=== PATIENT | female | born 1965 ===

== ENCOUNTER 2019-07-04 10:01 | Observation (INO) | payer OTHER, MEDICAID, SELFPAY ==
[2019-07-04] VITALS (10 sets, daily range): BP systolic 107–141; BP diastolic 60–100; PULSE 80–93; RESP 16–18; TEMP 36.8–37.2; O2SAT 94–100; BMI 23.1; BMI 22.2
--- NOTE | 2019-07-04 10:09 | DI.CT.S_ITS ---
PROCEDURE: CT STROKE INDICATIONS: possible stroke TECHNIQUE: Noncontrast 4.5 mm thick angled axial sections acquired from the foramen magnum to the vertex, with coronal reformats. For radiation dose reduction, the following was used: automated exposure control, adjustment of mA and/or kV according to patient size. COMPARISON: None. FINDINGS: Image quality: Excellent. CSF spaces: Basal cisterns are patent. No extra-axial fluid collections. The ventricles are symmetric in size and shape. Brain: No intracranial bleeds or masses. On the axial 5 mm series there is volume averaging artifact within sulcus, image 20/2 the right frontal region, which does not persist with thin reformations, and not seen on coronal or sagittal reformations. There is cerebral volume loss for age, with resultant ventricular and sulcal prominence. There are periventricular and deep white matter chronic small vessel ischemic changes. There is intracranial internal carotid artery atherosclerosis. Skull and face: Calvarium and visualized facial bones appear intact, without suspicious lesions. Sinuses: Visualized sinuses and mastoids are clear. IMPRESSION: No acute intracranial process. Findings were personally telephoned and discussed with Dr. Portillo in the emergency department at 1023 hours 07/04/19. This study fulfills neurological imaging criteria for inclusion or exclusion of acute stroke therapies based on available published neurological guidelines. Dictated by: Nico Rehman M.D. on 07/04/2019 at 10:20 Approved by: Nico Rehman M.D. on 07/04/2019 at 10:24
[2019-07-04 10:18] LABS: Add Manual Diff / Slide Review NO; Basophils Absolute Auto 100 /uL (0-100); Basophils Percent Auto 0.7 % (0-2); Eosinophils Absolute Auto 300 /uL (0-450); Eosinophils Percent Auto 2.8 % (2-4); Hematocrit 37.5 % (36-46); Hemoglobin 12.5 g/dL (12.0-16.0); Lymphocytes Absolute Auto 2000 /uL (1100-4500); Lymphocytes Percent Auto 18.4 % (25-40); Mean Corpuscular HGB Conc 33.4 % (30-36); Mean Corpuscular Hemoglobin 29.2 PG (26-34); Mean Corpuscular Volume 87.5 fL (80-100); Monocytes Absolute Auto 700 /uL (0-900); Monocytes Percent Auto 6.7 % (3-14); Neutrophils Absolute Auto 7600 /uL (1500-7000); Neutrophils Percent Auto 71.4 % (50-75); Platelet Count 285 X10^3/uL (150-400); Red Blood Cell Count 4.28 X10^6/uL (4.0-5.2); Red Cell Distribution Width 13.5 % (11.6-14.8); White Blood Cell Count 10.7 X10^3/uL (4.5-11.0)
[2019-07-04 10:19] LABS: Prothrombin Time 11.7 SECONDS (10.1-12.7)
--- NOTE | 2019-07-04 10:19 | ED_ITS ---
HPI - General Adult General Chief complaint: Neuro Symptoms/Deficit Stated complaint: Stroke Time Seen by Provider: 07/04/19 10:01 Source: patient and EMS Mode of arrival: EMS Limitations: no limitations History of Present Illness HPI narrative: 54-year-old female arrived as a code stroke. Is reported that approximately 30-45 minutes prior to arrival patient had onset of right-sided facial tingling, right-sided facial droop, weakness in her right hand and weakness in her right lower extremity. Patient was arriving to her methadone clinic when the symptoms started. She also was complaining of right-sided hea dache. Since the onset of the symptoms EMS reports that they feel like her speaking has improved. Patient also reports that her symptoms have improved since the onset. Upon further questioning it does appear that the right-sided facial tingling potentially started at 0400 hours in the morning which is approximately 6 hours prior to arrival here in the ER. Related Data Home Medications Medication Instructions Recorded Confirmed IBUPROFEN (Motrin / Advil) 800 mg PO #0 05/23/08 Sertraline Hydrochloride (Zoloft) 50 mg PO Q DAY #0 05/23/08 [MAXALT] 10 mg #0 05/23/08 Allergies Allergy/AdvReac Type Severity Reaction Status Date / Time risperidone [From Risperdal] Allergy Severe Swelling Verified 07/04/19 10:24 of Lip/Tongue/Throat varenicline [From Chantix] Allergy Severe ITCHING Verified 07/04/19 10:24 Morphine Allergy Severe ITCHING Uncoded 07/04/19 10:23 Review of Systems Constitutional Constitutional: Denies fatigue, Denies fever(s), Reports headache(s) and Reports weakness Eyes Eyes: Denies change in vision ENT Ears, Nose, Mouth, and Throat: Denies vertigo, Denies dizziness, Reports he adache(s), Denies disequilibrium and Denies sore throat Comments: Right-sided facial tingling Cardiovascular Cardiovascular: Denies chest pain, Denies palpitations and Denies dyspnea Respiratory Respiratory: Denies dyspnea Gastrointestinal Gastrointestinal: Denies abdominal pain, Denies nausea and Denies vomiting Genitourinary Genitourinary: Denies dysuria Musculoskeletal Musculoskeletal: Denies myalgias, Denies arthralgias and Reports tingling Comments: Right upper extremity weakness and right lower extremity weakness Integumentary/Breasts Skin/Breast: Denies lesions and Denies rash Neurologic Neurologic: Denies behavioral changes, Denies confusion, Denies vertigo, Denies dizziness, Reports headache(s), Denies lack of coordination, Reports focal weakness, Denies seizure-like activity, Reports tingling, Denies tremor(s), Denies disequilibrium and Reports weakness Psychiatric Psychiatric: Denies behavioral changes and Denies confusion Endocrine Endocrine: Denies fatigue and Denies palpitations Hematologic/Lymphatic Hematologic/Lymphatic: Denies easy bleeding and Denies easy bruising Patient History Medical History Drug abuse (Acute) Migraine (Acute) Social History Smoking Status: Current every day smoker Exam Initial Vital Signs Initial Vital Signs: Vital Signs Pulse Rate 87 07/04/19 10:12 Respiratory Rate 18 07/04/19 10:12 Blood Pressure 136/96 H 07/04/19 10:12 Pulse Oximetry 100 07/04/19 10:12 Const General: cooperative, comfortable, well developed and well groomed Limitations: mental status not altered [facility] Head: normal to inspection and normocephalic Nose: external nose normal Face and sinus: normal facial exam, face symmetric and no tenderness Mouth: oral mucosae normal Throat: posterior oropharynx normal Eyes Pupils: PERRL Resp Effort & Inspection: normal respiratory effort Auscultation: clear to auscultation bilaterally Cardio Rate: regular rate Rhythm: regular rhythm GI Inspection: non-distended Palpation: soft, No firm and No tender Skin Lesions: no lesions Rashes: no rashes Neuro General: alert, awake and oriented x3 Cranial Nerves: CN's II-XI intact bilaterally Cognition: normal cognition Speech: speech normal Motor: muscle tone normal throughout Extrem General: normal to inspection and capillary refill normal Scores GCS Jair coma scale eye opening: Spontaneous Flushing coma scale verbal response: Orientated Flushing coma scale motor response: Obey commands Flushing coma scale total score: 15 NIH Stroke Scale Level of Conciousness: Alert, keenly responsive Ask month/age: Answers both questions correctly. Open/close eyes, close hand: Performs both tasks correctly Best gaze horizontal: Normal Visual segura: No visual loss Facial palsy: Normal symetrical movement Left arm drift: No drift for full 10 sec Right arm drift: No drift for full 10 sec Left leg drift: No drift for full 10 sec Right leg drift: No drift for full 10 sec Limb ataxia: Present in one limb (Right lower extremity) Sensory on face/arms/legs: Mild to moderate sensory loss, can tell touch (Right- sided face) Best language: No aphasia, normal Dysarthria: Normal Extinction or inattention: No abnormality Total NIH Stroke scale score: 2 Course Orders Ordered: ED Orders 07/04/19 10:03 EKG-12 Lead Stat 07/04/19 10:09 CT Stroke Stat 07/04/19 10:10 Complete Blood Count AUTO DIFF Stat Comprehensive Metabolic Panel Stat Ethanol (ETOH) Stat Lipase Stat Partial Thromboplastin Time Stat Prothrombin Time INR Stat Troponin I Stat Discontinued Medications Aspirin (Aspirin Chew) 324 mg PO NOW ONE Stop: 07/04/19 11:02 Last Admin: 07/04/19 11:22 Dose: 324 mg Documented by: JENIFER Nicotine (Nicoderm) 14 mg TOP NOW ONE Stop: 07/04/19 11:12 Vital Signs Vital signs: Vital Signs - 8 hr 07/04/19 10:12 07/04/19 10:28 07/04/19 11:20 Pulse Rate 87 86 83 Respiratory Rate 18 18 16 Blood Pressure 136/96 H Blood Pressure [Right Arm] 141/84 H 125/68 Pulse Oximetry 100 100 94 Medical Decision Making Lab Data Lab results reviewed: Yes I reviewed the patient's lab results. Result diagrams: 07/04/19 10:10 07/04/19 10:10 Labs: Lab Results 07/04/19 07/04/19 07/04/19 Range/Units 10:10 10:10 10:10 WBC 10.7 (4.5-11.0) X10^3/uL RBC 4.28 (4.0-5.2) X10^6/uL Hgb 12.5 (12.0-16.0) g/dL Hct 37.5 (36-46) % MCV 87.5 (80-100) fL MCH 29.2 (26-34) PG MCHC 33.4 (30-36) % RDW 13.5 (11.6-14.8) % Plt Count 285 (150-400) X10^3/uL Neut % (Auto) 71.4 (50-75) % Lymph % (Auto) 18.4 L (25-40) % Christian % (Auto) 6.7 (3-14) % Eos % (Auto) 2.8 (2-4) % Baso % (Auto) 0.7 (0-2) % Neut # (Auto) 7600 H (9613-3487) /uL Lymph # (Auto) 2000 (6711-9399) /uL Christian # (Auto) 700 (0-900) /uL Eos # (Auto) 300 (0-450) /uL Baso # (Auto) 100 (0-100) /uL PT 11.7 (10.1-12.7) SECONDS INR 1.0 (0.9-1.3) APTT 32 (26.4-36.2) SECONDS Sodium 138 (137-145) mmol/L Potassium 3.9 (3.4-5.1) mmol/L Chloride 101 (98-107) mmol/L Carbon Dioxide 28 (22-32) mmol/L BUN 12 (7-17) mg/dL Creatinine 0.74 (0.52-1.04) mg/dL Estimated GFR > 60.0 (>60) mL/min BUN/Creatinine Ratio 16.2 (6-22) Glucose 87 (70-100) mg/dL Calcium 9.8 (8.4-10.2) mg/dL Total Bilirubin 0.4 (0.2-1.3) mg/dL AST 35 (14-36) IU/L ALT 22 (<35) IU/L Alkaline Phosphatase 104 (38-126) U/L Troponin I (0.01-0.034) ng/mL Total Protein 8.3 H (6.3-8.2) g/dL Albumin 4.6 (3.5-5.0) g/dL Globulin 3.7 (1.7-4.1) g/dL Albumin/Globulin Ratio 1.2 (1.0-2.8) Lipase (23-300) U/L Ethyl Alcohol ( - 10) mg/dL / Range/Units 10:10 WBC (4.5-11.0) X10^3/uL RBC (4.0-5.2) X10^6/uL Hgb (12.0-16.0) g/dL Hct (36-46) % MCV (80-100) fL MCH (26-34) PG MCHC (30-36) % RDW (11.6-14.8) % Plt Count (150-400) X10^3/uL Neut % (Auto) (50-75) % Lymph % (Auto) (25-40) % Christian % (Auto) (3-14) % Eos % (Auto) (2-4) % Baso % (Auto) (0-2) % Neut # (Auto) (6599-2234) /uL Lymph # (Auto) (9632-8504) /uL Christian # (Auto) (0-900) /uL Eos # (Auto) (0-450) /uL Baso # (Auto) (0-100) /uL PT (10.1-12.7) SECONDS INR (0.9-1.3) APTT (26.4-36.2) SECONDS Sodium (137-145) mmol/L Potassium (3.4-5.1) mmol/L Chloride (98-107) mmol/L Carbon Dioxide (22-32) mmol/L BUN (7-17) mg/dL Creatinine (0.52-1.04) mg/dL Estimated GFR (>60) mL/min BUN/Creatinine Ratio (6-22) Glucose (70-100) mg/dL Calcium (8.4-10.2) mg/dL Total Bilirubin (0.2-1.3) mg/dL AST (14-36) IU/L ALT (<35) IU/L Alkaline Phosphatase (38-126) U/L Troponin I < 0.012 (0.01-0.034) ng/mL Total Protein (6.3-8.2) g/dL Albumin (3.5-5.0) g/dL Globulin (1.7-4.1) g/dL Albumin/Globulin Ratio (1.0-2.8) Lipase 60 (23-300) U/L Ethyl Alcohol < 10 ( - 10) mg/dL Point of Care Testing Glucose POC 98 Urine Dip Bedside Urine Glucose Negative Bedside Urine Bilirubin - Negative Bedside Urine Ketone - Negative Urine Specific [place] 1.015 Bedside Urine Occult Blood - Negative Bedside Urine pH 6.0 Bedside Urine Protein - Negative Bedside Urine Urobilinogen - Negative Bedside Urine Nitrite - Negative Bedside Urine Leukocytes - Negative Esterase Point of care testing: Point of Care Testing Glucose POC 98 Urine Dip Bedside Urine Glucose Negative Bedside Urine Bilirubin - Negative Bedside Urine Ketone - Negative Urine Specific [place] 1.015 Bedside Urine Occult Blood - Negative Bedside Urine pH 6.0 Bedside Urine Protein - Negative Bedside Urine Urobilinogen - Negative Bedside Urine Nitrite - Negative Bedside Urine Leukocytes - Negative Esterase Imaging Data CT scan - head: Radiologist's Impression: [address] [address] [address] Scan Report Signed Patient: Shyann Keita KMR#: [id number] : 1965Acct:[id number] Age/Sex: 54 / FDate of Service: 07/04/19 Loc: ED Accession Number: [id number] Procedure: CT Stroke Ordering Provider: Jeffery Portillo D.O. PROCEDURE: CT STROKE INDICATIONS: possible stroke TECHNIQUE: Noncontrast 4.5 mm thick angled axial sections acquired from the foramen magnum to the vertex, with coronal reformats. For radiation dose reduction, the following was used: automated exposure control, adjustment of mA and/or kV according to patient size. COMPARISON: None. FINDINGS: Image quality: Excellent. CSF spaces: Basal cisterns are patent. No extra-axial fluid collections. The ventricles are symmetric in size and shape. Brain: No intracranial bleeds or masses. On the axial 5 mm series there is volume averaging artifact within sulcus, image 20/2 the right frontal region, which does not persist with thin reformations, and not seen on coronal or sagittal reformations. There is cerebral volume loss for age, with resultant ventricular and sulcal prominence. There are periventricular and deep white matter chronic small vessel ischemic changes. There is intracranial internal carotid artery atherosclerosis. Skull and face: Calvarium and visualized facial bones appear intact, without suspicious lesions. Sinuses: Visualized sinuses and mastoids are clear. IMPRESSION: No acute intracranial process. Findings were personally telephoned and discussed with Dr. Portillo in the emergency department at 1023 hours 07/04/19. This study fulfills neurological imaging criteria for inclusion or exclusion of acute stroke therapies based on available published neurological guidelines. Dictated by: Nico Rehman M.D. on 07/04/2019 at 10:20 Approved by: Nico Rehman M.D. on 07/04/2019 at 10:24 ECG Data Attestation: I personally reviewed and interpreted this ECG as follows: Prior ECG tracings: not available for review Interpretation: Sinus rhythm Ventricular rate 84 Normal axis Normal QRS Normal QTC No ST T wave changes MDM Narrative Medical decision making narrative: Patient initially arrived as a code stroke within the window for tPA however per EMS and the patient does appear that her symptoms have been improving since the onset. Upon further questioning it does appear that her symptoms have potentially been present for greater than 6 hours. She does have a history of migraines. Has never had hemiplegic issues before with migraines. Her head CT is unremarkable. Initial NIH score of 2. I did discuss the case with Stroke Neurology who agree not treating the patient with tPA and admitting for further workup for a TIA. I then discussed the case with Dr. Quezada who will accept. Discussed this with the patient. She expressed understanding and agreement. Discharge Plan Departure Patient Disposition: Admitted as Observation Clinical Impression: Brain TIA Headache Qualifiers: Headache type: unspecified Headache chronicity pattern: unspecified pattern Intractability: not intractable Qualified Code(s): R51 - Headache
[2019-07-04 10:22] LABS: PTT Partial Thromboplastin Tim 32 SECONDS (26.4-36.2)
[2019-07-04 10:23] LABS: Ethanol (ETOH) < 10 mg/dL; Lipase 60 U/L (23-300)
[2019-07-04 10:24] LABS: Alanine Aminotransferase 22 IU/L (<35); Albumin 4.6 g/dL (3.5-5.0); Albumin Globulin Ratio 1.2 (1.0-2.8); Alkaline Phosphatase 104 U/L (38-126); Aspartate Aminotransferase 35 IU/L (14-36); BUN Creatinine Ratio 16.2 (6-22); Bilirubin Total 0.4 mg/dL (0.2-1.3); Blood Urea Nitrogen 12 mg/dL (7-17); Calcium 9.8 mg/dL (8.4-10.2); Carbon Dioxide 28 mmol/L (22-32); Chloride 101 mmol/L (98-107); Estimated Glomerular Filt Rate > 60.0 mL/min (>60); Globulin 3.7 g/dL (1.7-4.1); Glucose 87 mg/dL (70-100); HEMOLYSIS 30 (0-50); Potassium 3.9 mmol/L (3.4-5.1); Sodium 138 mmol/L (137-145); Total Protein 8.3 g/dL (6.3-8.2)
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
[2019-07-04 10:35] LABS: Troponin I < 0.012 ng/mL (0.01-0.034)
[2019-07-04] MEDS: ASPIRIN 81 MG CHEW TAB 324 MG PO (11:22)
[2019-07-04] MEDS: NICOTINE 14 PATCH 14 MG TOP (11:45)
--- NOTE | 2019-07-04 12:37 | DI.MRI.S_ITS ---
PROCEDURE: MR STROKE Pre- and post-contrast brain MRI, non-contrast brain MR angiogram, pre- and postcontrast neck MR angiogram INDICATIONS: TIA/CVA wi rt side deficit TECHNIQUE: Brain: Noncontrast axial T1 spin echo, axial T2 fast spin echo, sagittal and axial FLAIR, coronal T2 fast spin echo, axial gradient echo, axial diffusion and ADC through the brain. After the administration of contrast, axial 3D VIBE of the cranial vasculature and brain. Brain MRA: Non-contrast 3-D time of flight MR angiogram, with multiple mppyoxz-ndxajwupy-ilqofrqbuh (MIP) reformats performed. Neck MRA: Axial and sagittal TruFISP through the neck. Coronal dynamic MR angiogram during administration of contrast in the arterial and venous phases, with 3-dimenstional yotvejp-svrtvswex-cweedmbwzu (MIP) reformats constructed from subtraction images. COMPARISON: [facility], CT, CT STROKE, 07/04/2019, 9:59. FINDINGS: Image quality: Degraded by motion artifact. BRAIN: CSF spaces: Ventricles are normal in size and shape. Basal cisterns are patent. No extra-axial fluid collections. Brain: No intracranial bleeds or mass effects. Mild degree of patchy high FLAIR signal within the periventricular and subcortical white matter. Wright-white matter interface is normal. Diffusion weighted images show no acute ischemic insults. Brainstem appears normal. Normal intravascular flow voids are present. No abnormal intracranial enhancement. Skull and face: Calvarial marrow signal is normal. Orbits appear normal. Sinuses: Sinuses and mastoids are clear. BRAIN MR ANGIOGRAM: Anterior circulation: Intracranial internal carotid arteries are normal in size and enhancement. The flow within the paired anterior cerebral arteries is normal and symmetric. The flow within the middle cerebral arteries is normal and symmetric. The anterior communicating artery is seen. No stenoses, occlusions, or aneurysms. Posterior circulation: The visualized portions of the vertebral arteries demonstrate normal caliber, and join to form a normal appearing basilar artery. The flow within the posterior cerebral arteries is normal and symmetric. No stenoses, occlusions, or aneurysms. NECK MR ANGIOGRAM: Carotids: Great vessels demonstrate a conventional anatomy as they arise from the aortic arch. The origins of the common carotid arteries appear patent. The calibers and courses of both common carotid arteries are normal. The bifurcation regions appear normal bilaterally. The internal carotid arteries demonstrate normal course and caliber. Posterior circulation: The origins of the vertebral arteries appear patent. More superior portions of both vertebral arteries demonstrate normal course and caliber, and join to form a normal appearing basilar artery. Miscellaneous: Subclavian arteries appear patent. Pre-contrast images through the neck show no soft tissue abnormalities. IMPRESSION: Limited examinations secondary to motion artifact. BRAIN MRI: 1. No acute process. No recent infarct. 2. Mild small vessel ischemic disease. BRAIN MR ANGIOGRAM: Grossly negative cerebral MR angiography. NECK MR ANGIOGRAM: 1. No definite internal carotid nor vertebral artery stenosis bilaterally. Dictated by: José Miguel Lees M.D. on 07/04/2019 at 15:55 Approved by: José Miguel Lees M.D. on 07/04/2019 at 15:59
--- NOTE | 2019-07-04 12:38 | DI.ECHO.S_ITS ---
Echocardiogram Report + + :Name: FLAVIO SON Study Date: 07/04/2019 Height: 70 in : :[facility] Weight: 160 lb : : Gender: Other BSA: 1.9 m2 : :: 1965 Age: 54 yrs BP: 136/96 mmHg: :Reason For Study: TIA : :Ordering Physician: Dr. Renner : :Damien Performed By: Mellissa Glaser : :Referring: Dr. Zurdo Quezada : + + Interpretation Summary There is normal left ventricular wall thickness. Left ventricular systolic function is normal without focal wall motion abnormalities. The ejection fraction is estimated to be 60-65%. Diastolic parameters suggest probable normal left ventricular diastolic function and normal filling pressures. The right ventricle is normal in size and function. Pulmonary artery pressures cannot be estimated because of the lack of a measurable TR jet velocity but the IVC suggests a CVP of around 3 mmHg. The left atrial size is normal. Right atrial size is normal. The atrial septum is aneurysmal. Injection of contrast documented an interatrial right to left shunt. There is mild mitral regurgitation. There is no other significant valvular heart disease. The aortic root is normal size. Procedure: A two-dimensional transthoracic echocardiogram with color flow and Doppler was performed. There is no prior echocardiogram noted for this patient. The study quality was technically adequate. A saline contrast injection was performed to assess for cardiac shunting. The injection was performed through an intravenous line in the left arm. The patient was in normal sinus rhythm during the exam. Left Ventricle: There is normal left ventricular wall thickness. The left ventricular cavity is small. Left ventricular systolic function is normal without focal wall motion abnormalities. The ejection fraction is estimated to be 60-65%. Diastolic parameters suggest probable normal left ventricular diastolic function and normal filling pressures. Right Ventricle: The right ventricle is normal in size and function. Atria: The left atrial size is normal. Right atrial size is normal. The atrial septum is aneurysmal. Injection of contrast documented an interatrial shunt. Mitral Valve: The mitral valve is normal in structure and function. There is a flat closure plane of the the mitral valve leaflets. There is mild mitral regurgitation. Aortic Valve: The aortic valve is normal in structure and function. The aortic valve is trileaflet. The aortic valve opens well. There is trace aortic regurgitation. Tricuspid Valve: The tricuspid valve is normal in structure and function. Pulmonary artery pressures cannot be estimated because of the lack of a measurable TR jet velocity but the IVC suggests a CVP of around 3 mmHg. There is a trace or physiologic amount of tricuspid regurgitation. Pulmonic Valve: The pulmonic valve is normal in structure and function. There is trace pulmonic regurgitation. There is no other significant valvular heart disease. Great Vessels: The aortic root is normal size. The ascending aorta could not be visualized. The IVC is of normal diameter and collapses greater than 50% with a sniff. This suggests a low right atrial pressure of 3 mm Hg. Pericardium/ Pleura There is no pericardial effusion. There is no pleural effusion. MMode/2D Measurements & Calculations LVIDd: 3.5 cm LVOT diam: 2.1 cm LVIDs: 2.4 cm Ao root diam: 2.9 cm FS: 32.4 % Ao Arch Diam (Prox Trans): 2.7 cm EPSS: 0.75 cm IVSd: 0.76 cm LVPWd: 0.94 cm LV allen. diameter/BSA (cm/m^2): 1.8 LV sys. diameter/BSA (cm/m^2): 1.2 LA A2 area: 16.5 cm2 RA long axis: 4.4 cm LA A4 area: 10.3 cm2 RA area: 13.0 cm2 LA length (vol): 4.1 cm RA vol: 33.0 ml LA vol: 35.2 ml RA : 17.4 ml/m2 LA vol index: 18.5 ml/m2 IVC diam: 1.2 cm RVD1 (basal): 3.0 cm TAPSE: 2.3 cm Doppler Measurements & Calculations Ao V2 max: 131.6 cm/sec LVOT Max Bakari: 105.8 cm/sec Ao V2 mean: 87.3 cm/sec LV V1 max P.5 mmHg Ao max P.9 mmHg LV V1 VTI: 21.7 cm Ao mean P.5 mmHg JASON(I,D): 2.9 cm2 Ao V2 VTI: 26.9 cm JASON(V,D): 2.9 cm2 sev ratio: 0.81 JASON indexed to BSA (cm^2/m^2): 1.5 MV E max bakari: 66.8 cm/sec PA V2 max: 73.8 cm/sec MV A max bakari: 57.1 cm/sec PA V2 mean: 50.4 cm/sec MV E/A: 1.2 PA mean P.1 mmHg Med Peak E' Bakari: 12.6 cm/sec PA pr(Accel): 16.7 mmHg E/E' med: 5.3 PA Accel Time: 0.14 sec Lat Peak E' Bakari: 13.8 cm/sec E/E' lat: 4.8 E/e' average: 5.1 MV dec time: 0.19 sec MV P1/2t: 54.0 msec MV P1/2t max bakari: 66.8 cm/sec SV(LVOT): 78.7 ml MVA(P1/2t): 4.1 cm2 _ Reading Physician:03:21 PM
--- NOTE | 2019-07-04 12:49 | PC.NURSE ---
Pt has been brought to the AC floor via wheelchair from the ED. Pt has arrived to the AC floor at 1230. She is A & O x4. She c/o some numbness to her chin but feels all other deficits that had caused her to be brought to the hospital have resolved. Pt has been oriented to the room.
--- NOTE | 2019-07-04 14:33 | P.HP_ITS ---
History of Present Illness History of Present Illness Date Patient Seen: 07/04/19 Time Patient Seen: 14:00 Chief complaint: Stroke Narrative: Patient is a 54-year-old female with history of migraine headaches, cigarette addiction, heroin use by inhalation who presented to ER due to acute change in neurological status. Around 4:00 a.m. this morning she woke up and noticed there was tingling on the right side of her face. Also her right eye felt a little watery and blurry. She was able to fall back asleep but woke up a couple of hours later with tingling and numbness of the right side of the face as well as the right arm and leg. She noticed she had difficulty applying makeup or lipstick. Then around 830 or 9:00 a.m. she started to notice a posterior headache which was unlike her typical migraines. Her usual migraines are preceded by visual prodrome and associated with photophobia. Around that time she got in the car and drove herself to the [facility] for her methadone treatment. While driving there she noticed her right ankle felt numb and weak. At the clinic they called 911 to bring her to the ER. In the ER she was still having paresthesias of the right face, upper and lower extremity as well as subjective weakness of arm and leg on that side. Symptoms gradually improved over the course of several hours. When the ER doc saw her patient had NIHSS score of 2 due to tingling of the face and ataxia of the right lower extremity. At this time mid afternoon patient states all her symptoms have resolved except she has some residual numbness around the right side of her lips. Patient has no history of coronary artery disease, TIA or CVA. She used to take simvastatin but it was stopped several years ago because she states her cholesterol was well controlled. Her migraines have been recently well controlled. She has been in methadone treatment for the past 7 months and continues to smoke heroin in small amounts. She denies IV drug use. Denies fevers, chest pain, dyspnea. EKG: Normal sinus rhythm, mild LAE Patient History Medical History Drug abuse (Acute) Migraine (Acute) Family & Social History Safety & Behavioral: Feels Safe in Current Yes Environment Been Physically Hurt or No Threatened By a Person Tobacco & Substance use: Smoking Status Current every day smoker alcohol intake frequency 0-2 drinks per day Substance Use Type heroin Meds Home Medications and Allergies Home Medications Medication Instructions Recorded Confirmed Type IBUPROFEN (Motrin / Advil) 800 mg PO #0 05/23/08 History Sertraline Hydrochloride (Zoloft) 50 mg PO Q DAY #0 05/23/08 History [MAXALT] 10 mg #0 05/23/08 History Allergies Allergy/AdvReac Type Severity Reaction Status Date / Time risperidone [From Risperdal] Allergy Severe Swelling Verified 07/04/19 10:24 of Lip/Tongue/Throat varenicline [From Chantix] Allergy Severe ITCHING Verified 07/04/19 10:24 Morphine Allergy Severe ITCHING Uncoded 07/04/19 10:23 Review of Systems Review of Systems ROS: Yes All systems reviewed with the patient and are negative except as otherwise documented Exam Vital Signs (past 8 hours): - 07/04/19 10:12 07/04/19 10:28 07/04/19 11:20 Temperature Pulse Rate 87 86 83 Respiratory Rate 18 18 16 Blood Pressure 136/96 H Blood Pressure [Right Arm] 141/84 H 125/68 Pulse Oximetry 100 100 94 07/04/19 11:50 07/04/19 12:15 07/04/19 12:35 Temperature 98.3 F Pulse Rate 90 93 H Respiratory Rate 18 18 Blood Pressure 141/100 H Blood Pressure [Right Arm] 128/71 Pulse Oximetry 97 98 99 Oxygen Delivery Method Room Air Oxygen Flow Rate 0 Narrative Exam Narrative: GENERAL: This is a very pleasant alert female who appears comfortable. HEAD: Atraumatic. Normocephalic. Face symmetric and tongue midline. EYES: Pupils equal, round and reactive. Extraocular motions intact. No scleral icterus. No injection or drainage. OROPHARYNX: Unremarkable NECK: Trachea midline. No JVD or lymphadenopathy. CARDIOVASCULAR: Regular rate and rhythm without murmurs, gallops, or rubs. RESPIRATORY: Clear to auscultation bilaterally. GASTROINTESTINAL: Abdomen nondistended, soft, non-tender. No hepato-splenomega ly, or palpable masses. EXTREMITIES: No edema. NEUROLOGICAL: Oriented x3, normal affect, no aphasia or dysarthria, no pronator drift of the arms, no weakness of the legs, normal finger to nose and heel to wilde bilaterally, normal light touch legs and arms but has minimal numbness on the right lower face SKIN: warm, dry, no rash Objective Labs Result Diagrams: 07/04/19 10:10 07/04/19 10:10 Labs: Laboratory Results - last 24 hr 07/04/19 07/04/19 07/04/19 10:10 10:10 10:10 WBC 10.7 RBC 4.28 Hgb 12.5 Hct 37.5 MCV 87.5 MCH 29.2 MCHC 33.4 RDW 13.5 Plt Count 285 Neut % (Auto) 71.4 Lymph % (Auto) 18.4 L [place] % (Auto) 6.7 Eos % (Auto) 2.8 Baso % (Auto) 0.7 Neut # (Auto) 7600 H Lymph # (Auto) 2000 [place] # (Auto) 700 Eos # (Auto) 300 Baso # (Auto) 100 PT 11.7 INR 1.0 APTT 32 Sodium 138 Potassium 3.9 Chloride 101 Carbon Dioxide 28 BUN 12 Creatinine 0.74 Estimated GFR > 60.0 BUN/Creatinine Ratio 16.2 Glucose 87 Calcium 9.8 Total Bilirubin 0.4 AST 35 ALT 22 Alkaline Phosphatase 104 Troponin I Total Protein 8.3 H Albumin 4.6 Globulin 3.7 Albumin/Globulin Ratio 1.2 Lipase Ethyl Alcohol 07/04/19 10:10 WBC RBC Hgb Hct MCV MCH MCHC RDW Plt Count Neut % (Auto) Lymph % (Auto) [place] % (Auto) Eos % (Auto) Baso % (Auto) Neut # (Auto) Lymph # (Auto) [place] # (Auto) Eos # (Auto) Baso # (Auto) PT INR APTT Sodium Potassium Chloride Carbon Dioxide BUN Creatinine Estimated GFR BUN/Creatinine Ratio Glucose Calcium Total Bilirubin AST ALT Alkaline Phosphatase Troponin I < 0.012 Total Protein Albumin Globulin Albumin/Globulin Ratio Lipase 60 Ethyl Alcohol < 10 Assessment & Plan Assessment & Plan narrative: 1. Acute TIA or CVA, present on admission, active -patient presenting with posterior headache and right side paresthesias and weakness, symptoms have largely resolved, headache is not anything like her typical migraines with prodrome and photophobia -received aspirin 325 mg in the ED -BP 136/96 to 141/100, allow permissive hypertension -head CT normal -neuro check q.4 hours, telemetry -echo -MR stroke protocol -lipid panel in a.m. 2. 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 -continue patient on her sertraline 3. Cigarette dependency, active -counseled to quit smoking -nicotine 14 mg patch daily as needed
--- NOTE | 2019-07-04 16:24 | PC.NURSE ---
Addendum entered by Aliza Fraser R.N. 07/05/19 00:35: Pt back in bed lying quietly on right side. Inquired if pt able to find a ride and pt states is not. Tele left in place and ICU aware to continue to monitor. IV left in place. [facility] paper products supervisor, yudy Horton. Addendum entered by Aliza Fraser R.N. 07/05/19 00:08: LAW FIRM PARTNER reports to this life insurance underwriter pt wants a cigarette. This life insurance underwriter entered pt's room and pt lying quietly in bed with eyes closed on left side. Rouses to movement in room. Reports wants a cigarette. Nicotine patch was offered and explanation this is a no smoking campus. Pt continues to state wants cigarette and will go off campus to smoke. Pt states, It's not that big of a deal. Informed pt d/t pandemic pt not allowed to leave floor and this is a no smoking campus. Informed pt if chooses to leave to smoke is considered AMA. Pt reports prepared to do just that. AKIN Rehman was informed and instructed this life insurance underwriter to have pt sign AMA paperwork. [facility] paper products supervisor, edwardo Horton. ICU informed to d/c tele by Barbara RENTERIA. Pt looking for ride at this time. Addendum entered by Aliza Fraser R.N. 07/04/19 22:48: AKIN Rehman in to speak with pt. Pt reports concerns re vehicle left at clinic unlocked with personal belongings inside. jail guard in to speak with pt and resolution reached. Pt now asleep in bed without signs of discomfort or distress. Addendum entered by Aliza Fraser R.N. 07/04/19 20:43: Pt reports numbness to lower lip resolved. Denies any further numbness or neuro deficits. Inquires re brain MRI done earlier today. States, If it's okay, I'm going home. AKIN Rehman informed. Addendum entered by Aliza Fraser R.N. 07/04/19 18:59: Amended: NIH 1 for sensory loss to lower lip. Addendum entered by Aliza Fraser R.N. 07/04/19 18:52: Pt taking diet well. Admits to very slight numbness lower lip. Denies any other neuro deficits/symptoms. NIH zero. Admits to slight headache pain, but refuses offer for intervention. Tele in place. Original Note: Report from Francesca celeste RN, stating pt did state occasional thoughts of self harm without a plan. This life insurance underwriter shared this information with Dr. Quezada who is in house. Pt returned from MRI.
[2019-07-04] MEDS: SODIUM CHLORIDE 0.9% FLUSH 10 ML IV (20:42)
--- NOTE | 2019-07-05 01:51 | PC.NURSE ---
Pt. sound asleep when I came to check her. Will monitor & assess her when she wakes up
[2019-07-05 04:50] VITALS: O2SAT 98
[2019-07-05 05:30] LABS: Cholesterol 193 mg/dL (140-199); HDL Cholesterol 37 mg/dL (40-60); LDL Cholesterol Calculated 129 mg/dL (<100); Triglycerides 135 mg/dL (35-150)
[2019-07-05 05:49] VITALS: BP 123/77; PULSE 84; RESP 16; TEMP 36.9; O2SAT 94
[2019-07-05 08:00] VITALS: BP 114/78; PULSE 80; RESP 16; TEMP 37.4; O2SAT 94
--- NOTE | 2019-07-05 09:24 | P.DS_ITS ---
History of Present Illness History of Present Illness Date Patient Seen: 07/04/19 Chief complaint: Stroke Narrative: Written by Dr. Quezada: Patient is a 54-year-old female with history of migraine headaches, cigarette addiction, heroin use by inhalation who presented to ER due to acute change in neurological status. Around 4:00 a.m. this morning she woke up and noticed t here was tingling on the right side of her face. Also her right eye felt a little watery and blurry. She was able to fall back asleep but woke up a couple of hours later with tingling and numbness of the right side of the face as well as the right arm and leg. She noticed she had difficulty applying makeup or lipstick. Then around 830 or 9:00 a.m. she started to notice a posterior headache which was unlike her typical migraines. Her usual migraines are preceded by visual prodrome and associated with photophobia. Around that time she got in the car and drove herself to the [facility] for her methadone treatment. While driving there she noticed her right ankle felt numb and weak. At the clinic they called 911 to bring her to the ER. In the ER she was still having paresthesias of the right face, upper and lower extremity as well as subjective weakness of arm and leg on that side. Symptoms gradually improved over the course of several hours. When the ER doc saw her patient had NIHSS score of 2 due to tingling of the face and ataxia of the right lower extremity. At this time mid afternoon patient states all her symptoms have resolved except she has some residual numbness around the right side of her lips. Patient has no history of coronary artery disease, TIA or CVA. She used to take simvastatin but it was stopped several years ago because she states her cholest oscar was well controlled. Her migraines have been recently well controlled. She has been in methadone treatment for the past 7 months and continues to smoke heroin in small amounts. She denies IV drug use. Denies fevers, chest pain, dyspnea. EKG: Normal sinus rhythm, mild LAE Discharge Providers Provider Date of admission: 07/04/19 12:00 Discharge Date: 07/05/19 Discharge provider: Adilene Wilkinson DO Summary Hospital Course Discharge Diagnosis: 1. Probable acute TIA, present on admission. Resolved. 2. Methadone dependency and heroin addiction by inhalation, present on admission. Stable. 3. Tobacco dependence, present on admission. Stable. Hospital Course: Shyann Keita is a 54-year-old female with a past medical history significant for migraine headaches, current active smoker and, heroin use by inhalation who presented to ED due to acute change in neurological status. 1. Probable acute TIA, present on admission. Resolved. -Patient presented with posterior headache, right side paresthesias and weakness which resolved prior to admission. The patient reported her headache was not anything like her typical migraines with prodrome and photophobia. -Initial NIH score 2. Repeat NIH is 0. -Continued frequent neuro checks. -CT head without contrast did not demonstrate any acute intracranial abnormalities. -Allowed for permissive hypertension for 24 hours. -Continued to monitor closely on telemetry. Patient remained in sinus rhythm w ithout ectopy throughout hospitalization. -MR stroke protocol did not demonstrate any acute intracranial abnormalities or significant hemodynamic stenosis of cerebral or neck vasculature. -Echocardiogram did not demonstrate embolic source but did demonstrate aneurysmal atrial septum with interatrial right to left shunt. -Risk stratified with fasting lipid panel which showed poor control with total cholesterol 193, triglycerides 135, LDL 129 (goal < 70), and HDL 37. -Received aspirin 325 mg in the ED. Continued aspirin 81 mg daily and atorvastatin 40 mg daily at bedtime for stroke prophylaxis. 2. Methadone dependency and heroin addiction by inhalation, present on admission. Stable. -Continued patient's routine methadone 140 mg each morning. -Continued home sertraline 50 mg daily. -Counseled patient in detail regarding smoking cessation and abstinence from heroin use. Patient reports she is very close to cessation of heroin use. 3. Tobacco dependence, present on admission. Stable. -Counseled patient in detail regarding smoking cessation. -Continued nicotine 14 mg patch daily as needed for nicotine withdrawal. Exam Vital Signs (past 8 hours): - 07/05/19 04:50 07/05/19 05:49 07/05/19 08:00 Temperature 98.4 F 99.3 F Pulse Rate 84 80 Respiratory Rate 16 16 Blood Pressure 123/77 114/78 Pulse Oximetry 98 94 94 Oxygen Delivery Method Room Air Oxygen Flow Rate 0 Narrative Exam Narrative: General: Middle-aged male sitting in bed and in no acute distress, appears older than stated age, well-developed, well-nourished, mildly anxious but otherwise appropriately interactive. HEENT: Normocephalic, atraumatic. External ears without defect. Pupils equal, round, and reactive to light. Anicteric sclerae, moist conjunctivae, and no lid lag. Oropharynx free of erythema and cobble stoning with moist mucosa. Neck: Supple with full range of motion. No jugular venous distension. No bruits. No lymphadenopathy or thyromegaly. Cardiovascular: Regular rate and rhythm without murmurs, rubs, or gallops appreciated. Pulmonary: Clear to auscultation bilaterally without crackles, wheezes, or rhonchi. Normal respiratory effort with no use of accessory muscles. Abdomen: Soft, bowel sounds present, nontender, nondistended. No hepatosplenomegaly or masses appreciated. Extremities: No clubbing, cyanosis, or edema. Skin: Normal temperature, turgor, and texture; no rash, ulcers, or subcutaneous nodules appreciated. Neurological: Cranial nerves grossly intact. Normal muscle strength, tone, and bulk. Reflexes, coordination, and sensory function within normal limits. No known gait impairment. Psychiatric: Normal mood and affect. Alert and oriented to person, place, and time. Objective Labs Result Diagrams: 07/04/19 10:10 07/04/19 10:10 Labs: Laboratory Results - last 24 hr 07/04/19 07/04/19 07/04/19 10:10 10:10 10:10 WBC 10.7 RBC 4.28 Hgb 12.5 Hct 37.5 MCV 87.5 MCH 29.2 MCHC 33.4 RDW 13.5 Plt Count 285 Neut % (Auto) 71.4 Lymph % (Auto) 18.4 L [place] % (Auto) 6.7 Eos % (Auto) 2.8 Baso % (Auto) 0.7 Neut # (Auto) 7600 H Lymph # (Auto) 2000 [place] # (Auto) 700 Eos # (Auto) 300 Baso # (Auto) 100 PT 11.7 INR 1.0 APTT 32 Sodium 138 Potassium 3.9 Chloride 101 Carbon Dioxide 28 BUN 12 Creatinine 0.74 Estimated GFR > 60.0 BUN/Creatinine Ratio 16.2 Glucose 87 Calcium 9.8 Total Bilirubin 0.4 AST 35 ALT 22 Alkaline Phosphatase 104 Troponin I Total Protein 8.3 H Albumin 4.6 Globulin 3.7 Albumin/Globulin Ratio 1.2 Triglycerides Cholesterol LDL Cholesterol, Calc HDL Cholesterol Lipase Ethyl Alcohol 07/04/19 07/05/19 10:10 05:10 WBC RBC Hgb Hct MCV MCH MCHC RDW Plt Count Neut % (Auto) Lymph % (Auto) [place] % (Auto) Eos % (Auto) Baso % (Auto) Neut # (Auto) Lymph # (Auto) [place] # (Auto) Eos # (Auto) Baso # (Auto) PT INR APTT Sodium Potassium Chloride Carbon Dioxide BUN Creatinine Estimated GFR BUN/Creatinine Ratio Glucose Calcium Total Bilirubin AST ALT Alkaline Phosphatase Troponin I < 0.012 Total Protein Albumin Globulin Albumin/Globulin Ratio Triglycerides 135 Cholesterol 193 LDL Cholesterol, Calc 129 H HDL Cholesterol 37 L Lipase 60 Ethyl Alcohol < 10 Discharge Plan Discharge Plan Patient Disposition: Home Discharge comment: You are being discharged home. You did not have a stroke. You likely had a TIA. You have been started on aspirin 81 mg daily and atorvastatin 40 mg daily at bedtime to help protect against stroke. Please follow-up with your primary care physician in the next 1 week regarding your hospitalization. Please try to cut back significantly or stop smoking indefinitely. Discharge orders & Medications Prescriptions: New aspirin 81 mg Tablet,Delayed Release (Dr/Ec) 81 mg PO DAILY Qty: 30 RF: 0 atorvastatin 40 mg tablet 40 mg PO BEDTIME Qty: 30 RF: 0 Continued IBUPROFEN (Motrin / Advil) 800 mg PO Qty: 0 RF: 0 Sertraline Hydrochloride (Zoloft) 50 mg PO Q DAY Qty: 0 RF: 0 [MAXALT] 10 mg Qty: 0 RF: 0 Diet/Activity/Treatments Diet: Low-fat, Low-sodium and Low-cholesterol Activity: Activity as tolerated Visit Report/Discharge Packet Instructions: DI for Transient Ischemic Attack, How to Quit Smoking, Atorvastatin, Mediterranean Diet May Reduce the Risk of Stroke in People with High Risk o Discharge Data Attending Provider: Zurdo Quezada Admit Date/Time: 07/04/19 12:00 Discharges patient from system. Discharge Date/Time: 07/05/19 10:30 Quality VTE Deep Vein Thrombosis/Pulmonary Embolism Present on Admission: No
[2019-07-05] MEDS: SERTRALINE 50 MG TABLET PO (09:43)
[2019-07-05] MEDS: ASPIRIN EC 81 MG TABLET PO (09:43)
[2019-07-05] MEDS: SODIUM CHLORIDE 0.9% FLUSH 10 ML IV (09:43)
[2019-07-05] MEDS: METHADONE 10 MG TABLET 140 MG PO (09:44)
--- NOTE | 2019-07-05 10:51 | CM.DANOTE ---
DCP: Case received, EMR reviewed and met with patient. Introduced self and role. Was able to meet with patient in her room to obtain information regarding her baseline activity and living situation. DCP assessment completed with information currently available. Patient is a 54 year old female who admitted yesterday afternoon to the care of the hospitalist team. PCP: Dr. Stack. Payer: confirmed: [facility] [employer]. Patient came to the hospital via ambulance secondary to having some right sided facial tingling, and paresthesias. Patient holds diagnosis of TIA, but is pending further testing. Patient also has history of heroin use, and goes to the methadone clinic. Met with patient in her room. She is alert and oriented, anxious to go home. Patient stated that she no longer works at [employer] and that she has not been with [employer] Odell for some time. She is independent, and has children that live in [place]. P: Patient is to be discharged home today, pending results of tests. Tamia Waller RN/Gymnastics Coach Or Instructor
--- NOTE | 2019-07-05 11:27 | PC.NURSE ---
Patient had breakfast, tolerated well. Up in room without problems, denies all complaints, very eager to leave this morning. Reviewed discharge handouts, home medications and new prescriptions with patient. Dr. Wilkinson also sat at bedside to review teaching at length. patient advised to stop smoking and not to use other substances. On way out patient threw her paperwork away in the trash stating seriously I don't need this, I don't want it. IV was removed intact. Patient was escorted out by RN to be discharged to home. Patient to follow up with her PCP.
[2019-07-05 11:59] LABS: Hemoglobin A1C% w Est Avg Glu 5.4 % (4.0-6.0)
== END 2019-07-05 10:30 | disposition home or self-care (01) ==
LOC: ED 11:04 → AC 12:02
PROVIDERS: Internal Medicine; Admitting Provider Internal Medicine; Emergency Provider Emergency Medicine; Referring Provider Emergency Medicine; Visit Provider Internal Medicine
DX: R29.818 Other symptoms and signs involving the nervous system (principal); R53.1 Weakness; R51 Headache; F11.20 Opioid dependence, uncomplicated; F17.210 Nicotine dependence, cigarettes, uncomplicated
CPT/HCPCS: 36415; 70450; 70548; 70553; 80053; 80061; 80320; 81003; 82962; 83036; 83690; 84484; 85025; 85610; 85730; 93005; 93306; 99285; G0378; A9579

== ENCOUNTER → 2023-10-12 11:53 | Outpatient (CLI) | payer OTHER, MEDICAID, SELFPAY ==
[2019-07-04 14:36] VITALS: BMI 22.2
== END ==
PROVIDERS: Family Provider Family Medicine; PCP Family Medicine; Referring Provider Physician Assistant; Visit Provider Physician Assistant
DX: M43.12 Spondylolisthesis, cervical region (principal); M47.22 Other spondylosis with radiculopathy, cervical region; M47.812 Spondylosis without myelopathy or radiculopathy, cervical region; R20.2 Paresthesia of skin
CPT/HCPCS: 95886; 95908; 95909